=== PATIENT | male | born 2000 | race Two or more races ===

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

== ENCOUNTER 2024-09-26 10:04 | Emergency (ER) | payer MEDICAID ==
[~2024-09-26] VITALS: Ht 165.1 cm; Wt 121.3 kg
--- NOTE | 2024-09-26 10:53 | ED.PDOC ---
HPI (NEURO) HPI Comments HPI: 24 y/o M, with PMHX of HLD, PRE-DM, and obesity presents to the ED for CC of headache. Patient states, he has been experiencing a right sided frontal headache for 2-3weeks. Patient relays, he was seen at [facility] and was departed with no remarkable findings. Patient endorses, associated symptoms of the common cold lasting about 2 weeks prior to the commencement of headache. Patient denies fatigue, blurred vision, nausea, vomiting, or dizziness. No other symptoms or modifying factors present at this time. The area of pain does not have erythema or swelling or deformity. Denies any fall or trauma or injury. VITALS: Temp: 99.2 BP:137/76 HR:107 RR:16 SPO2:96% Past medical history:HLD, PRE-DM, OBESE Past surgical history: HERNIA REPAIR HPI: Poor Historian. REVIEW OF SYSTEMS: CONSTITUTIONAL: Denies acute: fever, diaphoresis, chills, generalized weakness. HEAD: Denies acute: headache, photophobia Eyes: Denies acute: Double vision, vision loss, eye pain, eye discharge. EARS: Denies acute: tinnitus, hearing loss, ear discharge, ear pain, THROAT: Denies acute: sore throat, swelling, difficulty swallowing , pain with swallowing, change in voice. NECK: Denies acute: neck pain, neck swelling, stiff neck. HEART: Denies acute : chest pain, palpitations, LUNGS: Denies acute: wheezing, cough, hemoptysis ABDOMEN: Denies acute: abdominal pain, Nausea, Vomiting, diarrhea, melena , hematemesis, hematochezia SKIN: Denies acute: rash, redness, lesions, itchiness. EXTREMITIES: Denies acute: calf pain, numbness, tingling, weakness, denies pain in extremity. Denies acute: Low back pain. Neuro: Denies acute: focal neurological deficit, motor or sensory focal neurological de ficit, tremors, seizure like activity, confusion, dizziness, change in mental status, loss of bowel or bladder function, cauda equina like symptoms. : Denies acute: dysuria, hematuria, flank pain, increase in urinary frequency. PSYCH: Denies acute: hallucination, suicidal ideation, homicidal ideation. PHYSICAL EXAM: General: ---no-----acute distress, awake and alert. Head: normocephalic, atraumatic. Neck: supple, trachea is midline, no swelling. Throat: Normal phonation. Eyes:, no erythema, no purulent discharge, no proptosis, no icterus. Heart: regular rate, regular rhythm, no significant murmur appreciated. Lungs: no apparent respiratory distress, Able to speak in full sentences. No wheezing, no rhonchi, no crackles. No stridors Clear to auscultation bilaterally. Abdomen: non tender to palpation, non distended, soft, no guarding, no rebound, + bowel sounds. Obese Neuro: Awake, Alert, oriented to name, self, situation, follows commands GCS=15. Speech is normal. Skin: no petechia, no purpura, no cyanosis, non-pale, not jaundice. Lower extremities: --no - Pitting edema no deformity, no focal swelling, no calf TTP. Makes eye contact. moves all four extremities. Face: no apparent facial droop. Ambulating in the ED independently. PERRLA, EOM-I CN 2-12 are grossly intact, No nystagmus. No nuchal rigidity, Kernig's sign, Brudzinski's sign, no meningeal signs. ED COURSE: Chief Complaint: Headache Time Seen by MD: 10:40 Primary Care Provider: KHADAR Lenz Notes: Nurses Notes, Medications, Allergies Information Source: Patient Mode of Arrival: Ambulatory Severity: Moderate Headache Severity: Moderate Timing: Weeks Duration: Since onset Prehospital treatment: None Headache Quality: Aching Headache Location: Parietal Symptoms: None History of: None Modifying factors: Nothing Associated Signs and Symptoms: None Was a procedure done? Was a procedure done?: No Differential Diagnosis (SZ) Seizure: N/A Headache: N/A (DDX include Sinusitis, migraine, meningitis, hypertension, intracranial mass/bleed, stroke, radiculopathy, vertebrobasillary insufficiency, cephalgia, pseudotumor cerebri, cerebellar ischemia/infarct, carotid stenosis, lacunar infarct, vertebral/carotid artery dissection, hydrocephalus, temporal arteritis, dura venous sinus thrombosis.) X-Ray, Labs, Meds, VS Vital Signs Date Time Temp Pulse Resp B/P (MAP) Pulse Ox O2 Delivery O2 Flow Rate FiO2 09/26/24 13:41 98.2 98 20 128/71 (90) 95 98.2 09/26/24 11:11 101 18 95 Room Air* 0 21 09/26/24 11:11 98.6 101 18 123/36 (65) 95 98.6 09/26/24 10:15 99.2 107 16 137/76 (96) 96 99.2 Lab Test 09/26/24 11:26 09/26/24 10:45 Range/Units Urine Color Light-yellow Yellow Urine Clarity Clear Clear Urine pH 7.5 5.0-9.0 Urine Specific [place] 1.023 1.001-1.035 Urine Protein Negative Negative Urine Ketones Negative Negative Urine Blood Negative Negative /uL Urine Nitrite Negative Negative Urine Bilirubin Negative Negative Urine Urobilinogen Normal Negative mg/dL Urine Leukocyte Esterase Negative Negative /uL Urine RBC 1 0 - 3 /hpf Urine Microscopic WBC 0-3 /HPF Urine Squamous Epithelial Cells Few <5 /hpf Urine Bacteria None seen None Seen /hpf Urine Glucose Normal Normal mg/dL Urine Opiates Screen Neg NEGATIVE Urine Fentanyl Screen Neg NEGATIVE Urine Barbiturates Screen Neg NEGATIVE Urine Phencyclidine Screen Neg NEGATIVE Urine Amphetamines Screen Neg NEGATIVE Urine Benzodiazepines Screen Neg NEGATIVE Urine Cocaine Screen Neg NEGATIVE Urine Cannabinoids Screen Neg NEGATIVE White Blood Count 10.9 H 4.4-10.8 10^3/uL Red Blood Count 5.44 4.5-5.90 10^6/uL Hemoglobin 13.7 13.5-17.5 g/dL Hematocrit 39.9 L 41.0-53.0 % Mean Corpuscular Volume 73.3 L 80.0-100.0 fL Mean Corpuscular Hemoglobin 25.1 L 28.0-32.0 pg Mean Corpuscular Hemoglobin Concent 34.2 32.0-36.0 g/dL Red Cell Distribution Width 15.3 H 11.8-14.3 % Platelet Count 297 140-450 10^3/uL Mean Platelet Volume 8.0 6.9-10.8 fL Neutrophils (%) (Auto) 70.6 37.0-80.0 % Lymphocytes (%) (Auto) 22.7 10.0-50.0 % Monocytes (%) (Auto) 5.6 0.0-12.0 % Eosinophils (%) (Auto) 0.8 0.0-7.0 % Basophils (%) (Auto) 0.3 0.0-2.0 % Neutrophils # (Auto) 7.7 1.6-8.6 10 ^3/uL Lymphocytes # (Auto) 2.5 0.4-5.4 10 ^3/uL Monocytes # (Auto) 0.6 0-1.3 10 ^3/uL Eosinophils # (Auto) 0.1 0-0.8 10 ^3/uL Basophils # (Auto) 0 0-0.2 10 ^3/uL Nucleated Red Blood Cells 0.0 % Erythrocyte Sedimentation Rate 28 H 0-20 mm/hr Sodium Level 137 136-145 mmol/L Potassium Level 3.8 3.5-5.1 mmol/L Chloride Level 102 98-107 mmol/L Carbon Dioxide Level 28 20-31 mmol/L Anion Gap 7 5-15 Blood Urea Nitrogen 11 9-23 mg/dL Creatinine 0.98 0.700-1.30 mg/dL Glomerular Filtration Rate Calc 110 >90 mL/min BUN/Creatinine Ratio 11.2 10.0-20.0 Serum Glucose 131 H 74-106 mg/dL Lactic Acid Level 1.4 0.4-2.0 mmol/L Calcium Level 9.8 8.7-10.4 mg/dL Total Bilirubin 0.4 0.2-1.0 mg/dL Aspartate Amino Transferase (AST) 13 13-40 U/L Alanine Aminotransferase (ALT) 18 7-40 U/L Alkaline Phosphatase 115 46-116 U/L Total Protein 7.6 5.7-8.2 g/dL Albumin 4.6 3.2-4.8 g/dL Monoscreen Negative Current Medications Medications (Trade) Dose Ordered Sig/Macey Route Start Time Stop Time Status Last Admin Acetaminophen/ Hydrocodone Bitart ([place] 5/325MG Tab) 1 tab ONCE ONCE PO 09/26/24 13:30 09/26/24 13:44 DC 09/26/24 13:[address] [address] Ph: [phone] DIAGNOSTIC IMAGING Diagnostic Imaging Report : [id number] Signed PATIENT: MARY ELLEN ENGLAND GERMANIAT: [id number] UNIT: [id number] : 2000 LOC: ER ROOM / BED: / AGE / SEX: 24 / M ADM STATUS: REG ER SERVICE 1034 ORDERING PHYSICIAN: OK MARCUS DO PROCEDURE(s): HDCT - HEAD W WO CONTRAST REASON: QUIROS ORDER NUMBER(s): [id number], ACCESSION NUMBER(s): [id number] CT HEAD WITH and without CONTRAST CLINICAL HISTORY: QUIROS TECHNIQUE: Multiple contiguous axial images of the head with and without contrast. Coronal and sagittal reformats. 100 cc of Omnipaque omnipaque 350 contrast was injected intravenously.Radiation Dose Information: CT Dose: CTDI volume is 60 mGy. Dose-length product is 12/15/1991 mGy*cm Comparison: None FINDINGS: There is mild generalized parenchymal volume loss. There is no evidence of intracranial hemorrhage, mass, mass effect or midline shift. There is no hydrocephalus or extra-axial fluid collection. There is no pathologic focus of enhancement. The grajeda-white matter differentiation appears maintained. The visualized paranasal sinuses and mastoid air cells are clear. The osseous structures appear unremarkable. IMPRESSION: 1. There is no acute intracranial process. HS:Y ATED BY: MIKHAIL NORIEGA MD DICTATED DATE/TIME: 09/26/241317 SIGNED BY: MIKHAIL NORIEGA MD SIGNED DATE/TIME: 09/26/241317 CC: Time of 1ST Reevaluation: 11:20 Reevaluation 1ST: Unchanged Patient Education/Counseling: Diagnosis, Treatment Family Education/Counseling: Other Comments Patient presented with the above HPI.--headache---workup was initiated. patient was found with the above mentioned diagnosis. the following medications were ordered: please refer to order lists of meds and tests obtained by myself Dr. Marcus. Patient ED course and VS have been stabilized. Patient has been reassessed in the ED and remained in a stable condition. Pertinent incidental findings were discussed with the patient and/or family. Patient/family voices understanding and is agreeable with plan. Patient has been observed in the ED adequate length of time to insure improvement/stability. Escalation of care considered: Consideration of escalation to observation or admission Patient was neurologically intact. No focal deficits. No other neurological complaints. Patient was DISCHARGED home in a stable condition. All the reports of any imaging studies that were ordered by myself were reviewed by myself. Departure 1 Departure Time of Disposition: 13:25 Impression: Primary Impression: Headache Additional Impression: Headache after cough Disposition: HOME / SELF CARE / HOMELESS Condition: Stable Additional Instructions: Additional discharge instructions: You MUST follow-up with your primary care/family doctor in 1 to 2 days. If you are unable to see your primary care/family doctor, please return to our emergency room for re-assessment and re-evaluation in 1 to 2 days. Return to the emergency room here in our facility or to the nearest ER PEDRO if your symptoms change or worsen. CONSULTATIONS: you MUST Follow-up for consultation as soon as possible with: -neurology in 1-2 days. Please call for appointment. You MUST call the consultants office yourself to make an appointment. You may need to arrange that through your insurance and/or your primary/family doctor. If you are unable to see the it systems analyst consultant in 1 to 2 days, you must return to our emergency room (or any other ER of your choice) for re-assessment and re- evaluation. Adequate fluid hydration. Below is a copy of your radiological report for follow up: [place] [address] Ph: [phone] DIAGNOSTIC IMAGING Diagnostic Imaging Report : [id number] Signed PATIENT: MARY ELLEN ENGLAND ACCT: [id number] UNIT: [id number] : 2000 LOC: ER ROOM / BED: / AGE / SEX: 24 / M ADM STATUS: REG ER SERVICE 1034 ORDERING PHYSICIAN: OK MARCUS DO PROCEDURE(s): HDCT - HEAD W WO CONTRAST REASON: QUIROS ORDER NUMBER(s): [id number], ACCESSION NUMBER(s): [id number] CT HEAD WITH and without CONTRAST CLINICAL HISTORY: QUIROS TECHNIQUE: Multiple contiguous axial images of the head with and without contrast. Coronal and sagittal reformats. 100 cc of Omnipaque omnipaque 350 contrast was injected intravenously.Radiation Dose Information: CT Dose: CTDI volume is 60 mGy. Dose-length product is 12/15/1991 mGy*cm Comparison: None FINDINGS: There is mild generalized parenchymal volume loss. There is no evidence of intracranial hemorrhage, mass, mass effect or midline shift. There is no hydrocephalus or extra-axial fluid collection. There is no pathologic focus of enhancement. The grajeda-white matter differentiation appears maintained. The visualized paranasal sinuses and mastoid air cells are clear. The osseous structures appear unremarkable. IMPRESSION: 1. There is no acute intracranial process. HS:Y ATED BY: MIKHAIL NORIEGA MD DICTATED DATE/TIME: 09/26/241317 SIGNED BY: MIKHAIL NOREIGA MD SIGNED DATE/TIME: 09/26/241317 CC: Discharged With: Self Critical Care Note Critical Care Time?: No Heart Score Heart Score: Heart Score Response (Comments) Value History N/A 0 EKG N/A 0 Age N/A 0 Risk Factors N/A 0 Troponin N/A 0 Total 0 I personally scribed for OK MARCUS DO ([email or web address]) on 09/26/24 at 10:53. Electronically submitted by Sasha Elam ([email or web address]). I personally scribed for OK MARCUS DO ([email or web address]) on 09/26/24 at 13:32. Electronically submitted by Sasha Elam ([email or web address]). OK MARCUS DO Sep 26, 2024 10:53
[2024-09-26 11:10] LABS: Basophils # (auto) 0 10 ^3/uL (0-0.2); Eosinophils # (auto) 0.1 10 ^3/uL (0-0.8); Lymphocytes # (auto) 2.5 10 ^3/uL (0.4-5.4); Monocytes # (auto) 0.6 10 ^3/uL (0-1.3)
[2024-09-26 11:11] VITALS: PULSE 101; RESP 18; O2SAT 95
[2024-09-26 11:12] LABS: Basophils % (auto) 0.3 % (0.0-2.0); Eosinophils % (auto) 0.8 % (0.0-7.0); Hematocrit 39.9 % (41.0-53.0); Hemoglobin 13.7 g/dL (13.5-17.5); Lymphocytes % (auto) 22.7 % (10.0-50.0); Mean Corpuscular Hemoglobin 25.1 pg (28.0-32.0); Mean Corpuscular Hgb Conc. 34.2 g/dL (32.0-36.0); Mean Corpuscular Volume 73.3 fL (80.0-100.0); Monocytes % (auto) 5.6 % (0.0-12.0); Neutrophils # (auto) 7.7 10 ^3/uL (1.6-8.6); Neutrophils % (auto) 70.6 % (37.0-80.0); Platelet Count (auto) 297 10^3/uL (140-450); Red Blood Cells 5.44 10^6/uL (4.5-5.90); Red Cell Distribution Width 15.3 % (11.8-14.3); White Blood Cell 10.9 10^3/uL (4.4-10.8)
[2024-09-26 11:36] LABS: Alanine Aminotransferase 18 U/L (7-40); Alkaline Phosphatase 115 U/L (46-116); Calcium 9.8 mg/dL (8.7-10.4); Chloride 102 mmol/L (98-107)
[2024-09-26 11:37] LABS: Albumin 4.6 g/dL (3.2-4.8); Anion Gap 7 (5-15); Aspartate Aminotransferase 13 U/L (13-40); BUN/Creatinine Ratio 11.2 (10.0-20.0); Bilirubin, Total 0.4 mg/dL (0.2-1.0); Blood Urea Nitrogen 11 mg/dL (9-23); Carbon Dioxide 28 mmol/L (20-31); Glucose 131 mg/dL (74-106); Potassium 3.8 mmol/L (3.5-5.1); Sodium 137 mmol/L (136-145); Total Protein 7.6 g/dL (5.7-8.2)
[2024-09-26 11:38] LABS: Urine Bacteria None Seen /hpf (None Seen)
[2024-09-26 11:53] LABS: Urine Blood Negative /uL (Negative); Urine Clarity Clear (Clear); Urine Color Light-Yellow (Yellow); Urine Protein, UAD Negative (Negative); Urine Specific Gravity 1.023 (1.001-1.035); Urine Squamous Epithelial Cell FEW /hpf (<5); Urine Urobilinogen Normal (Negative); Urine pH 7.5 (5.0-9.0)
[2024-09-26 12:02] LABS: Erythrocyte Sedimentation Rate 28 mm/hr (0-20)
[2024-09-26 12:03] LABS: Amphetamine Screen, Urine Neg (NEGATIVE); Barbiturate Scree,Urine Neg (NEGATIVE); Opiate Scree,Urine Neg (NEGATIVE); Phencyclidine Screen, Urine Neg (NEGATIVE)
[2024-09-26 12:04] LABS: Benzodiazephine Screen, Urine Neg (NEGATIVE); Cannabinoid Screen, Urine Neg (NEGATIVE); Cocaine Screen, Urine Neg (NEGATIVE)
[2024-09-26] MEDS: IOHEXOL 300 MG/ML 100ML BOTTLE IJ ONE (12:04)
--- NOTE | 2024-09-26 13:20 | DVH ---
CT HEAD WITH and without CONTRAST CLINICAL HISTORY: QUIROS TECHNIQUE: Multiple contiguous axial images of the head with and without contrast. Coronal and sagittal reforma ts. 100 cc of Omnipaque omnipaque 350 contrast was injected intravenously.Radiation Dose Information: CT Dose: CTDI volume is 60 mGy. Dose-length product is 12/15/1991 mGy*cm Comparison: None FINDINGS: There is mild generalized parenchymal volume loss. There is no evidence of intracranial hemorrhage, m ass, mass effect or midline shift. There is no hydrocephalus or extra-axial fluid collection. There is no pathologic focus of enhancement. The grajeda-white matter differentiation appears maintained. The visualized paranasal sinuses and mastoid air cells are clear. The osseous structures appear unrem arkable. IMPRESSION: 1. There is no acute intracranial process. HS:Y
[2024-09-26 13:41] VITALS: BP 128/71; PULSE 98; RESP 20; TEMP 98.2; O2SAT 95
[2024-09-26] MEDS: HYDROcodone-ACET 5/325MG TAB PO ONE (13:48)
== END 2024-09-26 13:50 | disposition home or self-care (01) ==
LOC: ER 10:04
DX: R51.9 Headache, unspecified (principal); R05.9 Cough, unspecified; E66.9 Obesity, unspecified; E78.5 Hyperlipidemia, unspecified; Z98.890 Other specified postprocedural states; Z79.899 Other long term (current) drug therapy
CPT/HCPCS: 36415; 70470; 80053; 80307; 81001; 83605; 85025; 85652; 86308; 99285; Q9967